=== PATIENT | female | born 1995 | race Hispanic/Latino ===

== ENCOUNTER 2019-02-06 13:16 | Emergency (ER) | payer MEDICAID | END 2019-02-06 15:43 | disposition home or self-care (01) | LOC: ED 13:16 ==

== ENCOUNTER 2019-02-16 13:09 | Emergency (ER) | payer MEDICAID ==
[2019-02-16] MEDS ORDERED: Sodium Chloride 0.9% 1000 ML 1,000 ML IV STA (13:22)
[2019-02-16] MEDS ORDERED: Hydromorphone 1 mg/ml Ampule IV ONE (13:35)
[2019-02-16] MEDS ORDERED: Zofran 4 MG/2 ML VIAL IV ONE (13:35)
[2019-02-16] MEDS ORDERED: Zofran 4 MG/2 ML VIAL ONE (13:42)
[2019-02-16] MEDS ORDERED: Hydromorphone 1 mg/ml Ampule ONE (13:42)
[2019-02-16] MEDS ORDERED: Sodium Chloride 0.9% 1000 ML 1,000 ML ONE (13:42)
[2019-02-16 13:45] LABS: Basophil (Absolute #) 0 (0-0.4); Eosinophil % 0.5 % (0.00-5.0); Eosinophil (Absolute #) 0.05 (0-0.5); Granulocyte Absolute (ANC) 8.39 (1.4-6.9); Granulocytes % 78.1 % (36.0-66.0); Hematocrit 37.7 % (35-47); Hemoglobin 12.5 gm/dl (12.0-16.0); Lymphocyte (Absolute #) 1.37 (1.0-4.6); Lymphocytes % 12.8 % (24.0-44.0); Mean Cell Volume 87.1 fl (78-100); Mean Corpuscular Hemoglobin 28.9 pg (26-32); Mean Corpuscular Hgb Concent. 33.2 g/dl (32-36); Monocyte (Absolute #) 0.92 (0.0-1.3); Monocytes % 8.6 % (0.0-12.0); Platelet Count 221 K/mm3 (150-450); Red Blood Count 4.33 M/mm3 (4.1-5.4); Red Cell Distribution Width 12.7 % (11.5-14.0); White Blood Count 10.7 K/mm3 (4.0-10.5)
[2019-02-16 13:50] LABS: Appearance SLIGHTLY CLOUDY (CLEAR); Bacteria MODERATE /HPF (NEGATIVE); Bilirubin NEGATIVE (NEGATIVE); Blood NEGATIVE Ery/ul (0-5); Epithelial Cells RARE /HPF (FEW); Glucose NEGATIVE (NEGATIVE); Ketones SMALL (NEGATIVE); Leukocyte Esterase NEGATIVE (NEGATIVE); Mucus MANY /HPF (NEGATIVE); Nitrite NEGATIVE (NEGATIVE); Protein,Urine Dip 30 (Negative); Specific Gravity 1.028 (1.005-1.025); Urobilinogen 2 mg/dL (0-1)
[2019-02-16 13:54] LABS: ALBUMIN 4.4 g/dL (3.5-5.0); ALKALINE PHOSPHATASE 90 U/L (38-126); AMYLASE 81 U/L (30-110); ANION GAP 13.4 MEQ/L (5-15); BLOOD UREA NITROGEN 12 mg/dL (7-17); CHLORIDE 104 mmol/L (98-107); Calcium 9.8 mg/dL (8.4-10.2); Carbon Dioxide 24 mmol/L (22-30); Creatinine 1 0.53 mg/dL (0.52-1.04); Glucose 92 mg/dL (74-106); LIPASE 19 U/L (23-300); Potassium 3.8 mmol/L (3.5-5.1); SGOT/AST 19 U/L (14-36); SGPT/ALT 12 U/L (0-35); SODIUM 137 mmol/L (137-145); Total Protein 8.3 g/dL (6.3-8.2)
--- NOTE | 2019-02-16 13:58 | ERPHSYRPT ---
- History of Present Illness Time Seen by Provider: 02/16/19 13:20 Historian: patient Exam Limitations: no limitations Patient Subjective Stated Complaint: pt here for pain to abd diffuse for 4-5 days now, with low grade fever, pt was seen last week for a UTI and has finished antiboitcs Triage Nursing Assessment: pt alert, resp easy, skin w/d, abd soft ,tender to touch , moves all ext, Physician History: 23 y/o female seen here approx 10 days ago with abd pain. pts urine hcg negative at that time and pt with definite uti. pt receive rx for cipro. pt states she did not take any of the medication but did drink a lot of cranberry juice. now, in the last 4 to 5 days sx worse. now with diffuse abd pain. unable to eat or drink. no vaginal bleeding and no vomiting or diarrhea. has nausea when she eats and drinks Timing/Duration: day(s) (4 to 5 days) Activities at Onset: none Quality: cramping Abdominal Pain Onset Location: generalized abdomen Pain Radiation: no radiation Severity of Pain-Max: moderate Severity of Pain-Current: moderate Associated Symptoms: loss of appetite Previous symptoms: no prior history Allergies/Adverse Reactions: No Known Drug Allergies Allergy (Verified 02/16/19 13:28) Hx Tetanus, Diphtheria Vaccination/Date Given: Yes Hx Influenza Vaccination/Date Given: No Hx Pneumococcal Vaccination/Date Given: No Immunizations Up to Date: Yes - Review of Systems Constitutional: No Symptoms Eyes: No Symptoms Ears, Nose, & Throat: No Symptoms Respiratory: No Symptoms Cardiac: No Symptoms Abdominal/Gastrointestinal: Abdominal Pain, Nausea, Appetite Changes, No Diarrhea Genitourinary Symptoms: No Symptoms Musculoskeletal: No Symptoms Skin: No Symptoms Neurological: No Symptoms Psychological: No Symptoms Endocrine: No Symptoms Hematologic/Lymphatic: No Symptoms Immunological/Allergic: No Symptoms All Other Systems: Reviewed and Negative - Past Medical History Pertinent Past Medical History: No Neurological History: No Pertinent History ENT History: No Pertinent History Cardiac History: No Pertinent History Respiratory History: No Pertinent History Endocrine Medical History: No Pertinent History Musculoskeletal History: No Pertinent History GI Medical History: No Pertinent History History: No Pertinent History Psycho-Social History: No Pertinent History Other Medical History: ECTOPIC - Past Surgical History Past Surgical History: No Neuro Surgical History: No Pertinent History Cardiac: No Pertinent History Respiratory: No Pertinent History Gastrointestinal: No Pertinent History Genitourinary: No Pertinent History Musculoskeletal: No Pertinent History Female Surgical History: No Pertinent History - Social History Smoking Status: Never smoker Exposure to second hand smoke: Yes Drug Use: marijuana Patient Lives Alone: No - Female History Hx Last Menstrual Period: december 2018 Hx Now: No - Nursing Vital Signs Nursing Vital Signs: Initial Vital Signs Temperature 98.0 F 02/16/19 13:13 Pulse Rate 96 H 02/16/19 13:13 Respiratory Rate 18 02/16/19 13:13 Blood Pressure 123/74 02/16/19 13:13 O2 Sat by Pulse Oximetry 100 02/16/19 13:13 Pain Scale Pain Intensity 3 - Physical Exam General Appearance: mild distress, alert, anxiety Eye Exam: PERRL/EOMI, eyes nml inspection Ears, Nose, Throat Exam: dry mucous membranes Neck Exam: normal inspection, non-tender, supple, full range of motion Respiratory Exam: normal breath sounds, lungs clear, airway intact, No chest tenderness, No respiratory distress Cardiovascular Exam: regular rate/rhythm, normal heart sounds, normal peripheral pulses Gastrointestinal/Abdomen Exam: soft, normal bowel sounds, tenderness (diffuse), guarding, No rebound Pelvic Exam: not done Rectal Exam: not done Back Exam: normal inspection, normal range of motion, vertebral tenderness, No CVA tenderness Extremity Exam: normal inspection, normal range of motion, pelvis stable Neurologic Exam: alert, oriented x 3, cooperative, eye care professional II-XII nml as tested Skin Exam: normal color, warm, dry Lymphatic Exam: No adenopathy SpO2: 100 O2 Delivery: Room Air - Course Nursing assessment & vital signs reviewed: Yes Ordered Tests: Active Orders 24 hr Category Date Time Status IV Insertion STAT Care 02/16/19 13:22 Active ABDOMEN AND PELVIS W/0 CONTRAS [CT] Stat Exams 02/16/19 13:23 Taken AMYLASE Stat Lab 02/16/19 13:42 Completed CBC W DIFF Stat Lab 02/16/19 13:42 Completed CMP Stat Lab 02/16/19 13:42 Completed CULTURE,URINE Stat Lab 02/16/19 13:42 Received HCG,QUALITATIVE URINE Stat Lab 02/16/19 15:19 Completed LIPASE Stat Lab 02/16/19 13:42 Completed Lactic Acid Stat Lab 02/16/19 13:18 Completed UA W/RFX UR CULTURE Stat Lab 02/16/19 13:42 Completed Medication Summary Discontinued Medications Generic Name Dose Route Start Last Admin Trade Name Ivan PRN Reason Stop Dose Admin Hydromorphone HCl 1 mg 02/16/19 13:35 02/16/19 13:43 Hydromorphone 1 Mg/Ml Ampule IV 02/16/19 13:36 1 mg STAT ONE Administration Hydromorphone HCl Confirm 02/16/19 13:42 Hydromorphone 1 Mg/Ml Ampule Administered 02/16/19 13:43 Dose 1 mg .ROUTE .STK-MED ONE Sodium Chloride 1,000 mls @ 999 mls/hr 02/16/19 13:22 02/16/19 13:43 Sodium Chloride 0.9% 1000 Ml IV 02/16/19 14:22 999 mls/hr .Q1H1M STA Administration Sodium Chloride Confirm 02/16/19 13:42 Sodium Chloride 0.9% 1000 Ml Administered 02/16/19 13:43 Dose 1,000 mls @ ud .ROUTE .STK-MED ONE Ondansetron HCl 4 mg 02/16/19 13:35 02/16/19 13:43 Zofran 4 Mg/2 Ml Vial IV 02/16/19 13:36 4 mg STAT ONE Administration Ondansetron HCl Confirm 02/16/19 13:42 Zofran 4 Mg/2 Ml Vial Administered 02/16/19 13:43 Dose 4 mg .ROUTE .STK-MED ONE Lab/Rad Data: Laboratory Result Diagrams 02/16/19 13:42 02/16/19 13:42 Laboratory Results 02/16/19 02/16/19 02/16/19 Range/Units 15:19 13:42 13:42 WBC (4.0-10.5) K/mm3 RBC (4.1-5.4) M/mm3 Hgb (12.0-16.0) gm/dl Hct (35-47) % MCV (78-100) fl MCH (26-32) pg MCHC (32-36) g/dl RDW (11.5-14.0) % Plt Count (150-450) K/mm3 MPV (6-9.5) fl Gran % (36.0-66.0) % Eos # (Auto) (0-0.5) Absolute Lymphs (auto) (1.0-4.6) Absolute Monos (auto) (0.0-1.3) Lymphocytes % (24.0-44.0) % Monocytes % (0.0-12.0) % Eosinophils % (0.00-5.0) % Basophils % (0.0-0.4) % Absolute Granulocytes (1.4-6.9) Basophils # (0-0.4) Sodium 137 (137-145) mmol/L Potassium 3.8 (3.5-5.1) mmol/L Chloride 104 (98-107) mmol/L Carbon Dioxide 24 (22-30) mmol/L Anion Gap 13.4 (5-15) MEQ/L BUN 12 (7-17) mg/dL Creatinine 0.53 (0.52-1.04) mg/dL Estimated GFR > 60.0 ML/MIN Glucose 92 (74-106) mg/dL Lactic Acid (0.4-2.0) Calcium 9.8 (8.4-10.2) mg/dL Total Bilirubin 0.60 (0.2-1.3) mg/dL AST 19 (14-36) U/L ALT 12 (0-35) U/L Alkaline Phosphatase 90 (38-126) U/L Serum Total Protein 8.3 H (6.3-8.2) g/dL Albumin 4.4 (3.5-5.0) g/dL Amylase 81 (30-110) U/L Lipase 19 L (23-300) U/L Urine Color [place]LEE (YELLOW) Urine Appearance SLIGHTLY CLOUDY (CLEAR) Urine pH 5.0 (5-6) Ur Specific [place] 1.028 (1.005-1.025) Urine Protein 30 (Negative) Urine Ketones SMALL (NEGATIVE) Urine Blood NEGATIVE (0-5) Sotero/ul Urine Nitrite NEGATIVE (NEGATIVE) Urine Bilirubin NEGATIVE (NEGATIVE) Urine Urobilinogen 2 (0-1) mg/dL Ur Leukocyte Esterase NEGATIVE (NEGATIVE) Urine WBC (Auto) 11-15 (0-5) /HPF Urine RBC (Auto) 3-5 (0-2) /HPF U Epithel Cells (Auto) RARE (FEW) /HPF Urine Bacteria (Auto) MODERATE (NEGATIVE) /HPF Other Casts (Auto) 0-2 (NEGATIVE) /LPF Urine Mucus (Auto) MANY (NEGATIVE) /HPF Urine Culture Reflexed YES (NO) Urine Glucose NEGATIVE (NEGATIVE) mg/dL Urine HCG, Qual NEGATIVE (Negative) 02/16/19 02/16/19 Range/Units 13:42 13:18 WBC 10.7 H (4.0-10.5) K/mm3 RBC 4.33 (4.1-5.4) M/mm3 Hgb 12.5 (12.0-16.0) gm/dl Hct 37.7 (35-47) % MCV 87.1 (78-100) fl MCH 28.9 (26-32) pg MCHC 33.2 (32-36) g/dl RDW 12.7 (11.5-14.0) % Plt Count 221 (150-450) K/mm3 MPV 10.0 H (6-9.5) fl Gran % 78.1 H (36.0-66.0) % Eos # (Auto) 0.05 (0-0.5) Absolute Lymphs (auto) 1.37 (1.0-4.6) Absolute Monos (auto) 0.92 (0.0-1.3) Lymphocytes % 12.8 L (24.0-44.0) % Monocytes % 8.6 (0.0-12.0) % Eosinophils % 0.5 (0.00-5.0) % Basophils % 0.0 (0.0-0.4) % Absolute Granulocytes 8.39 H (1.4-6.9) Basophils # 0 (0-0.4) Sodium (137-145) mmol/L Potassium (3.5-5.1) mmol/L Chloride (98-107) mmol/L Carbon Dioxide (22-30) mmol/L Anion Gap (5-15) MEQ/L BUN (7-17) mg/dL Creatinine (0.52-1.04) mg/dL Estimated GFR ML/MIN Glucose (74-106) mg/dL Lactic Acid 0.6 (0.4-2.0) Calcium (8.4-10.2) mg/dL Total Bilirubin (0.2-1.3) mg/dL AST (14-36) U/L ALT (0-35) U/L Alkaline Phosphatase (38-126) U/L Serum Total Protein (6.3-8.2) g/dL Albumin (3.5-5.0) g/dL Amylase (30-110) U/L Lipase (23-300) U/L Urine Color (YELLOW) Urine Appearance (CLEAR) Urine pH (5-6) Ur Specific [place] (1.005-1.025) Urine Protein (Negative) Urine Ketones (NEGATIVE) Urine Blood (0-5) Sotero/ul Urine Nitrite (NEGATIVE) Urine Bilirubin (NEGATIVE) Urine Urobilinogen (0-1) mg/dL Ur Leukocyte Esterase (NEGATIVE) Urine WBC (Auto) (0-5) /HPF Urine RBC (Auto) (0-2) /HPF U Epithel Cells (Auto) (FEW) /HPF Urine Bacteria (Auto) (NEGATIVE) /HPF Other Casts (Auto) (NEGATIVE) /LPF Urine Mucus (Auto) (NEGATIVE) /HPF Urine Culture Reflexed (NO) Urine Glucose (NEGATIVE) mg/dL Urine HCG, Qual (Negative) - Progress Progress: improved, pain not gone completely, re-examined Progress Note: 02/16/19 17:06 ct abd/pelvis-left ovarian cyst. no other acute findings. Counseled pt/family regarding: lab results, diagnosis, need for follow-up, rad results - Departure Departure Disposition: Home Clinical Impression: Abdominal pain, UTI (urinary tract infection), Left ovarian cyst, Noncompliance Condition: Stable Critical Care Time: No Referrals: DOCTOR,NO FAMILY [Primary Care Provider] - Additional Instructions: drink plenty of fluids. add ibuprofen for pain. follow up with outpatient doctor for further management. fill your antibiotic prescription. Prescriptions: Hydrocodone/APAP 5/325 [Mora 5/325 mg] 1 each PO Q12H PRN PRN #5 tablet MDD 2 PRN Reason: Pain
[2019-02-16 17:14] VITALS: O2SAT 100
[2019-02-16] MEDS ORDERED: Cipro 500 MG PO ONE (17:21)
[2019-02-16] MEDS ORDERED: NORCO 5/325 MG PO ONE (17:22)
[2019-02-16] MEDS ORDERED: Cipro 500 MG ONE (17:26)
[2019-02-16] MEDS ORDERED: NORCO 5/325 MG ONE (17:26)
[2019-02-16 18:03] VITALS: BP 108/60; PULSE 95
--- NOTE | 2019-02-16 22:41 | XRAY ---
Indication: Severe upper abdomen pain. Multiple contiguous axial images obtained through the abdomen and pelvis without contrast as ordered. Comparison: None Lung bases are clear. Heart is not enlarged. Noncontrasted stomach and bowel loops appear nonobstructed. Normal appendix. 4.5 cm left ovary and 1.4 cm right ovary cyst. No free fluid/air. Remaining liver, gallbladder, pancreas, spleen, adrenal glands, kidneys, ureters, bladder, uterus, and aorta appear unremarkable for noncontrast exam. Osseous structures intact. No ventral or inguinal hernias. Impression: 1. Bilateral ovary cysts, largest 4.5 cm on the left. Pelvis sonogram may yield further information if clinically warranted. 2. Remaining CT abdomen/pelvis without contrast exam is negative. CTDI 12.41
== END 2019-02-16 18:00 | disposition home or self-care (01) ==
LOC: ED 13:09
DX: R10.9 Unspecified abdominal pain (principal); N39.0 Urinary tract infection, site not specified; N83.202 Unspecified ovarian cyst, left side; Z91.19 Patient's noncompliance with other medical treatment and regimen
CPT/HCPCS: 36000; 36415; 74176; 80053; 81001; 82150; 83605; 83690; 84703; 85025; 87086; 96360; 96374; 96375; 99284; J1170; J2405; A9270-GY